=== PATIENT | female | born 1985 | race Caucasian/White ===

== ENCOUNTER → 2024-10-01 | Outpatient (CLI) | payer BC ==
--- NOTE | 2024-10-02 07:35 | MR ---
EXAMINATION TYPE: MR brain wo/w con DATE OF EXAM: 10/01/2024 10:17 PM COMPARISON: None. CLINICAL INDICATION: Female, 39 years old with history of H46.8, Optic neuritis left eye, MS TECHNIQUE: Multiplanar, multiecho imaging on a 3.0 [place] magnet is performed through the brain. Stud y is performed within 24 hours of arrival to the hospital. Multiplanar, multiecho imaging on a 3.0 [place] magnet is performed through the brain. IV Contrast: 6 mL Gadobutrol (None, if empty) FINDINGS: The craniovertebral junction is normal. The pituitary is normal. Optic chiasm appears normal. Diffusion-weighted imaging is performed. No abnormal hyperintensity is present to suggest an acute i ntracranial infarct or acute ischemic change. Signal within the brain appears normal. Typical white matter changes associated with multiple scleros is not apparent on the current exam. Optic nerves appear normal. Globes appear symmetrical. Intracona l and extraconal fat appears normal. Extraocular muscles appear unremarkable. Ventricles and sulci are appropriate for the patient age. There is a patent cavum septum lucidum and cavum verge, normal variants. There is some prominence of the vascular structure at the level of the anterior communicating artery. MRA of the [place] is recommended to evaluate for 0.3 cm aneurysm. IMPRESSION: 1. 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 MRA [place] recommended for additi onal workup. 2. No suspicious changes to suggest multiple sclerosis [facility], , 10/02/2024 7:33 AM
== END | disposition home or self-care (01) ==
LOC: RADMRIMAIN 21:45
PROVIDERS: ATTEND Ophthalmology
DX: H46.8 Other optic neuritis (principal)
CPT/HCPCS: 70553; A9585

== ENCOUNTER → 2024-10-19 | Outpatient (CLI) | payer BC ==
--- NOTE | 2024-10-20 09:09 | MR ---
EXAMINATION TYPE: MR angio head wo con DATE OF EXAM: 10/19/2024 4:59 PM COMPARISON: MRI brain. CLINICAL INDICATION: Female, 39 years old with history of I60.2 NTRM SUBARACH HEMORRHAGE FROM ANTERIO R; PHH, Headaches, Abnormal MRI Brain done 10-01-2024 TECHNIQUE: 3-D [id number] Axial with MIP reconstruction created on a separate workstation.. IV Contrast: mL (None, if empty) FINDINGS: Vertebral arteries: The vertebral arteries are patent. Vertebral arteries are: Codominant. Basilar artery: The basilar artery is intact. The basilar artery bifurcation is normal. Internal Carotid arteries: The cervical, petrous, cavernous and supraclinoid segments are normal. ANDERSON: Patent with no evidence of aneurysm. ACOM: Present without evidence of aneurysm. Trifurcation vessels appeared more prominent on prior MRI brain MCA: Patent with no evidence of aneurysm. [employer]: Patent with no evidence of aneurysm. PCOM: Hypoplastic bilaterally. Other: Cavum septum pellucidum et vergae IMPRESSION: No aneurysm noted at the anterior communicating artery. No additional evidence of aneurysm or signifi cant stenosis. Findings on prior likely representing slice selection artifact. [facility], , 10/20/2024 9:07 AM
== END | disposition home or self-care (01) ==
LOC: RADMRIMAIN 16:28
PROVIDERS: ATTEND Ophthalmology
DX: I60.2 Nontraumatic subarachnoid hemorrhage from anterior communicating artery (principal)
CPT/HCPCS: 70544